=== PATIENT | male | born 1970 | race Caucasian/White ===

== ENCOUNTER 2021-07-22 16:01 | Observation (INO) | payer BC ==
[2021-07-22] MEDS ORDERED: ASPIRIN 81 MG PO STA (16:39)
--- NOTE | 2021-07-22 16:42 | ED ---
General Adult HPI - General Chief complaint: Chest Pain Stated complaint: Chest Pain Time Seen by Provider: 07/22/21 16:29 Source: patient, RN notes reviewed Mode of arrival: ambulatory Limitations: no limitations - History of Present Illness Initial comments: Patient is a pleasant 51-year-old male presenting to the emergency Department with complaints of chest discomfort. Onset of symptoms was several hours ago. Discomfort was as severe as 5 or 6/10. Discomfort is near resolved at this time. Patient states discomfort was right sternal, sharp. There was some radiation towards the neck. Patient follow-up and short of breath and anxious and was sweaty. No nausea. No history of similar symptoms previously. Patient does have history apparently use. Patient also has history of atrial fibrillation and is on flecainide as well as elequis. - Related Data Home Medications Medication Instructions Recorded Confirmed Acetaminophen [Tylenol 8 Hour] 650 mg PO Q4H PRN 07/22/21 07/22/21 Apixaban [Eliquis] 5 mg PO BID 07/22/21 07/22/21 Atorvastatin Calcium [Lipitor] 40 mg PO HS 07/22/21 07/22/21 Calc/Mag/Zinc/Aaliyah D 1 tab PO TID PRN 07/22/21 07/22/21 Chlorpheniramine Maleate 4 mg PO Q4H PRN 07/22/21 07/22/21 [Chlor-Trimeton] Flecainide Acetate 50 mg PO BID 07/22/21 07/22/21 Hyoscyamine Sulfate [Levsin] 0.125 mg PO QID PRN 07/22/21 07/22/21 Ibuprofen [Motrin Ib] 600 mg PO Q6H PRN 07/22/21 07/22/21 Loperamide HCl [Imodium A-D] 4 mg PO QID PRN 07/22/21 07/22/21 Metoprolol Succinate (ER) [Toprol 100 mg PO DAILY 07/22/21 07/22/21 Xl] Multivitamins, Thera [Multivitamin 1 tab PO DAILY 07/22/21 07/22/21 (formulary)] Ondansetron [Zofran] 4 mg PO Q6H PRN 07/22/21 07/22/21 Pantoprazole Sodium [Protonix] 40 mg PO DAILY 07/22/21 07/22/21 Thiamine HCl [Vitamin B-1] 100 mg PO DAILY 07/22/21 07/22/21 cloNIDine HCL [Catapres] 0.1 mg PO Q4H PRN 07/22/21 07/22/21 guaiFENesin SYRUP 100MG/5ML 200 mg PO Q4H PRN 07/22/21 07/22/21 [Robitussin] traZODone HCL [Desyrel] 50 - 150 mg PO HS PRN 07/22/21 07/22/21 Allergies Allergy/AdvReac Type Severity Reaction Status Date / Time No Known Allergies Allergy Verified 07/22/21 17:35 Review of Systems ROS Statement: Those systems with pertinent positive or pertinent negative responses have been documented in the HPI. ROS Other: All systems not noted in ROS Statement are negative. Constitutional: Denies: fever Eyes: Denies: eye pain ENT: Denies: ear pain Respiratory: Reports: as per HPI. Denies: cough Cardiovascular: Reports: as per HPI, chest pain Endocrine: Denies: fatigue Gastrointestinal: Denies: abdominal pain, nausea, vomiting Genitourinary: Denies: dysuria Musculoskeletal: Denies: back pain Skin: Denies: rash Neurological: Denies: headache Psychiatric: Reports: as per HPI, anxiety Past Medical History Past Medical History: Atrial Fibrillation, Hypertension History of Any Multi-Drug Resistant Organisms: None Reported Past Surgical History: No Surgical Hx Reported Past Psychological History: No Psychological Hx Reported Smoking Status: Current every day smoker Past Alcohol Use History: None Reported Past Drug Use History: Heroin General Exam Limitations: no limitations General appearance: alert, in no apparent distress Head exam: Present: normocephalic Eye exam: Present: normal appearance Neck exam: Present: normal inspection Respiratory exam: Present: normal lung sounds bilaterally. Absent: chest wall tenderness Cardiovascular Exam: Present: regular rate, normal rhythm, normal heart sounds Expanded Peripheral pulses: 2+: Radial (R), Radial (L), Posterior Tibialis (R), Posterior Tibialis (L) GI/Abdominal exam: Present: soft. Absent: tenderness Extremities exam: Present: normal inspection. Absent: pedal edema, calf tender ness Neurological exam: Present: alert Psychiatric exam: Present: normal affect, normal mood Skin exam: Present: normal color Course Vital Signs 07/22/21 07/22/21 16:11 17:46 Temperature 98 F Pulse Rate 73 60 Respiratory 16 16 Rate Blood Pressure 150/89 132/94 O2 Sat by Pulse 98 97 Oximetry EKG Findings - EKG Comments: EKG Findings:: Sinus rhythm with a rate of 62. GA 155. QRS 90. QT 404. QTC 49. Normal axis. Normal QRS. No acute ST change. Medical Decision Making - Medical Decision Making Patient evaluated. Patient updated on results and plan. Case discussed with , who will admit for hospital call. - Lab Data Result diagrams: 07/22/21 17:10 07/22/21 17:10 Lab Results 07/22/21 07/22/21 07/22/21 Range/Units 17:10 17:10 17:10 WBC 8.2 (3.8-10.6) k/uL RBC 4.37 (4.30-5.90) m/uL Hgb 14.0 (13.0-17.5) gm/dL Hct 40.1 (39.0-53.0) % MCV 91.6 (80.0-100.0) fL MCH 31.9 (25.0-35.0) pg MCHC 34.8 (31.0-37.0) g/dL RDW 13.9 (11.5-15.5) % Plt Count 335 (150-450) k/uL MPV 7.8 Neutrophils % 57 % Lymphocytes % 33 % Monocytes % 5 % Eosinophils % 2 % Basophils % 1 % Neutrophils # 4.7 (1.3-7.7) k/uL Lymphocytes # 2.7 (1.0-4.8) k/uL Monocytes # 0.4 (0-1.0) k/uL Eosinophils # 0.2 (0-0.7) k/uL Basophils # 0.0 (0-0.2) k/uL PT 10.7 (9.0-12.0) sec INR 1.0 (<1.2) APTT 27.7 (22.0-30.0) sec D-Dimer <0.17 (<0.60) mg/L FEU Sodium 141 (137-145) mmol/L Potassium 4.5 (3.5-5.1) mmol/L Chloride 105 (98-107) mmol/L Carbon Dioxide 25 (22-30) mmol/L Anion Gap 11 mmol/L BUN 13 (9-20) mg/dL Creatinine 0.82 (0.66-1.25) mg/dL Est GFR (CKD-EPI)AfAm >90 (>60 ml/min/1.73 sqM) Est GFR (CKD-EPI)NonAf >90 (>60 ml/min/1.73 sqM) Glucose 92 (74-99) mg/dL Calcium 9.3 (8.4-10.2) mg/dL Magnesium 2.2 (1.6-2.3) mg/dL Total Bilirubin 0.5 (0.2-1.3) mg/dL AST 23 (17-59) U/L ALT 26 (4-49) U/L Alkaline Phosphatase 66 (38-126) U/L Troponin I (0.000-0.034) ng/mL Total Protein 7.3 (6.3-8.2) g/dL Albumin 4.4 (3.5-5.0) g/dL 07/22/21 Range/Units 17:10 WBC (3.8-10.6) k/uL RBC (4.30-5.90) m/uL Hgb (13.0-17.5) gm/dL Hct (39.0-53.0) % MCV (80.0-100.0) fL MCH (25.0-35.0) pg MCHC (31.0-37.0) g/dL RDW (11.5-15.5) % Plt Count (150-450) k/uL MPV Neutrophils % % Lymphocytes % % Monocytes % % Eosinophils % % Basophils % % Neutrophils # (1.3-7.7) k/uL Lymphocytes # (1.0-4.8) k/uL Monocytes # (0-1.0) k/uL Eosinophils # (0-0.7) k/uL Basophils # (0-0.2) k/uL PT (9.0-12.0) sec INR (<1.2) APTT (22.0-30.0) sec D-Dimer (<0.60) mg/L FEU Sodium (137-145) mmol/L Potassium (3.5-5.1) mmol/L Chloride (98-107) mmol/L Carbon Dioxide (22-30) mmol/L Anion Gap mmol/L BUN (9-20) mg/dL Creatinine (0.66-1.25) mg/dL Est GFR (CKD-EPI)AfAm (>60 ml/min/1.73 sqM) Est GFR (CKD-EPI)NonAf (>60 ml/min/1.73 sqM) Glucose (74-99) mg/dL Calcium (8.4-10.2) mg/dL Magnesium (1.6-2.3) mg/dL Total Bilirubin (0.2-1.3) mg/dL AST (17-59) U/L ALT (4-49) U/L Alkaline Phosphatase (38-126) U/L Troponin I <0.012 (0.000-0.034) ng/mL Total Protein (6.3-8.2) g/dL Albumin (3.5-5.0) g/dL - Radiology Data Radiology results: image reviewed (Chest x-ray shows no acute process) Disposition Clinical Impression: Chest pain Disposition: ADMITTED IP TO THIS [facility] Is patient prescribed a controlled substance at d/c from ED?: No Referrals: None,Stated [Primary Care Provider] - 1-2 days Decision Time: 19:16
[2021-07-22 17:19] LABS: Basophils % (A) 1 %; Eosinophils # (A) 0.2 k/uL (0-0.7); Eosinophils % (A) 2 %; HCT 40.1 % (39.0-53.0); Lymphocytes # (A) 2.7 k/uL (1.0-4.8); Lymphocytes % (A) 33 %; MCH 31.9 pg (25.0-35.0); MCHC 34.8 g/dL (31.0-37.0); MCV 91.6 fL (80.0-100.0); Mean Platelet Volume 7.8; Monocytes # (A) 0.4 k/uL (0-1.0); Monocytes % (A) 5 %; Neutrophils # (A) 4.7 k/uL (1.3-7.7); Neutrophils % (A) 57 %; Platelet Count 335 k/uL (150-450); RBC 4.37 m/uL (4.30-5.90); RDW 13.9 % (11.5-15.5); WBC 8.2 k/uL (3.8-10.6)
[2021-07-22 17:29] LABS: ALT 26 U/L (4-49); AST 23 U/L (17-59); African American GFR (CKD) >90 (>60 ml/min/1.73 sqM); Albumin 4.4 g/dL (3.5-5.0); Alkaline Phosphatase 66 U/L (38-126); Anion Gap 11 mmol/L; Blood Urea Nitrogen 13 mg/dL (9-20); Calcium 9.3 mg/dL (8.4-10.2); Carbon Dioxide 25 mmol/L (22-30); Chloride 105 mmol/L (98-107); Glucose 92 mg/dL (74-99); Magnesium 2.2 mg/dL (1.6-2.3); Non-African American GFR(CKD) >90 (>60 ml/min/1.73 sqM); Potassium 4.5 mmol/L (3.5-5.1); Sodium 141 mmol/L (137-145); Total Bilirubin 0.5 mg/dL (0.2-1.3); Total Protein 7.3 g/dL (6.3-8.2)
[2021-07-22 17:36] LABS: Partial Thromboplastin Time 27.7 sec (22.0-30.0); Prothrombin Time 10.7 sec (9.0-12.0)
--- NOTE | 2021-07-22 18:20 | XR ---
EXAMINATION TYPE: XR chest 2V DATE OF EXAM: 07/22/2021 COMPARISON: NONE HISTORY: Chest pain TECHNIQUE: 2 views FINDINGS: Heart and mediastinum are normal. Lungs are clear. Diaphragm is normal. Bony thorax appears normal. IMPRESSION: Normal chest
[2021-07-22] MEDS ORDERED: NITROGLYCERIN SL TABS 0.4 MG TAB SUBLINGUAL PRN (19:16)
[2021-07-23] MEDS: NITROGLYCERIN OINT 1 INCH/GM PACKET TOPICAL SCH ×2 (00:04→05:50)
[2021-07-23] MEDS ORDERED: NALOXONE 0.4 MG/ML 1 ML VIAL IVP PRN (01:16)
--- NOTE | 2021-07-23 01:18 | P.HPIM ---
History of Present Illness H&P Date: 07/22/21 Patient is a 51-year-old male with a PMH of A. seun on Eliquis, heroin abuse, currently at [place] who presented to the emergency complaints of chest pain. The patient reports that his pain started at around 1 PM, was right- sided, sharp and aching in nature, 5 out of 10 at maximal intensity, constant, nonradiating, with no alleviating or exacerbating features. He does report some associated shortness of breath and diaphoresis but denied nausea, vomiting, diarrhea. Denies any history of such pain in the past. Denied history of coronary artery disease or MIs in the past. Reports compliance with his medications. In the emergency room, evaluation revealed a troponin of less than 0.012. EKG revealed sinus rhythm at [address]/T-wave changes are as reviewed by me. Chest x-ray was unremarkable. Review of systems: Pertinent positives and negatives as discussed in HPI, a complete review of systems was performed and all other systems are negative. Physical examination: General: non toxic, no distress, appears at stated age, normal weight Derm: no unusual rashes/lesions no unusual ecchymoses, warm, dry Head: atraumatic, normocephalic, symmetric Eyes: EOMI, no lid lag, anicteric sclera, pupils equal round reactive to light ENT: Nose and ears atraumatic, no thrush, no pharyngeal erythema Neck: No thyromegaly, no cervical lymphadenopathy, trachea midline, supple Mouth: no lip lesion, mucus membranes moist Cardiovascular: S1S2 reg, no murmur, positive posterior tibial pulse bilateral, no edema, capillary refill less than 2 seconds Lungs: CTA bilateral, no rhonchi, no rales , no accessory muscle use Abdominal: soft, nontender to palpation, no guarding, no appreciable organomegaly, normal bowel sounds Ext: no gross muscle atrophy, muscle strength 5 out of 5 in all 4 extremities grossly, no contractures, Neuro: CN II-XI grossly intact, light touch intact all 4 extremities, finger to nose within normal limits, Psych: Alert, oriented, appropriate affect Assessment/plan Chest pain with atypical features -Trend troponin -Cardiac monitoring -Cardiology consult -Continue with aspirin, statin Chronic conditions: A. fib, HTN -Continue with home meds DVT prophylaxis -Eliquis The patient is admitted with an anticipated less than 2 midnight stay for eval uation of chest pain CODE STATUS: Full Code Discussed with: Patient Anticipated discharge date: in am Anticipated discharge place: Home Past Medical History Past Medical History: Atrial Fibrillation, Hypertension History of Any Multi-Drug Resistant Organisms: None Reported Past Surgical History: No Surgical Hx Reported Past Psychological History: No Psychological Hx Reported Smoking Status: Current every day smoker Past Alcohol Use History: None Reported Past Drug Use History: Heroin - Past Family History Father Family Medical History: Unable to Obtain Mother Family Medical History: Chest Pain / Angina Medications and Allergies Home Medications Medication Instructions Recorded Confirmed Type Acetaminophen [Tylenol 8 Hour] 650 mg PO Q4H PRN 07/22/21 07/22/21 History Apixaban [Eliquis] 5 mg PO BID 07/22/21 07/22/21 History Atorvastatin Calcium [Lipitor] 40 mg PO HS 07/22/21 07/22/21 History Calc/Mag/Zinc/Aaliyah D 1 tab PO TID PRN 07/22/21 07/22/21 History Chlorpheniramine Maleate 4 mg PO Q4H PRN 07/22/21 07/22/21 History [Chlor-Trimeton] Flecainide Acetate 50 mg PO BID 07/22/21 07/22/21 History Hyoscyamine Sulfate [Levsin] 0.125 mg PO QID PRN 07/22/21 07/22/21 History Ibuprofen [Motrin Ib] 600 mg PO Q6H PRN 07/22/21 07/22/21 History Loperamide HCl [Imodium A-D] 4 mg PO QID PRN 07/22/21 07/22/21 History Metoprolol Succinate (ER) [Toprol 100 mg PO DAILY 07/22/21 07/22/21 History Xl] Multivitamins, Thera [Multivitamin 1 tab PO DAILY 07/22/21 07/22/21 History (formulary)] Ondansetron [Zofran] 4 mg PO Q6H PRN 07/22/21 07/22/21 History Pantoprazole Sodium [Protonix] 40 mg PO DAILY 07/22/21 07/22/21 History Thiamine HCl [Vitamin B-1] 100 mg PO DAILY 07/22/21 07/22/21 History cloNIDine HCL [Catapres] 0.1 mg PO Q4H PRN 07/22/21 07/22/21 History guaiFENesin SYRUP 100MG/5ML 200 mg PO Q4H PRN 07/22/21 07/22/21 History [Robitussin] traZODone HCL [Desyrel] 50 - 150 mg PO HS PRN 07/22/21 07/22/21 History Allergies Allergy/AdvReac Type Severity Reaction Status Date / Time No Known Allergies Allergy Verified 07/22/21 17:35 Physical Exam Vitals: Vital Signs Temp Pulse Resp BP Pulse Ox 07/22/21 17:46 60 16 132/94 97 07/22/21 16:11 98 F 73 16 150/89 98 Intake and Output 07/22/21 07/22/21 07/22/21 06:59 14:59 22:59 Other: Weight 74.843 kg Results CBC & Chem 7: 07/22/21 17:10 07/22/21 17:10
[2021-07-23] MEDS ORDERED: ATORVASTATIN 80 MG TAB PO ONE (01:30)
[2021-07-23] MEDS ORDERED: METOPROLOL TARTRATE 25 MG TAB PO ONE (01:30)
[2021-07-23] MEDS: NICOTINE 14MG/24HR PATCH TRANSDERM SCH ×2 (02:40→09:14)
[2021-07-23] MEDS ORDERED: HEPARIN SODIUM,PORCINE/PF 5,000 UNIT/0.5 ML SYRINGE SQ SCH (08:00)
[2021-07-23] MEDS ORDERED: APIXABAN 5 MG TAB PO SCH (09:00)
[2021-07-23] MEDS ORDERED: PANTOPRAZOLE 40 MG TABLET PO SCH (09:00)
[2021-07-23] MEDS ORDERED: THIAMINE 100 MG TAB PO SCH (09:00)
[2021-07-23] MEDS ORDERED: FLECAINIDE 50 MG TAB PO SCH (09:00)
[2021-07-23] MEDS ORDERED: ASPIRIN 325 MG TAB PO SCH (09:00)
[2021-07-23] MEDS ORDERED: METOPROLOL SUCCINATE (ER) 100 MG TAB.ER.24H PO SCH (09:00)
[2021-07-23 09:16] LABS: Chol/HDL Ratio 3.63 Ratio; LDL Cholesterol,Calculated 65.5 mg/dL (0.0-131.0); VLDL Calculation 18.46 mg/dL (5.00-40.00)
--- NOTE | 2021-07-23 10:17 | P.CRDCN ---
History of Present Illness Consult date: 07/23/21 History of present illness: HISTORY OF PRESENT ILLNESS: This is a 51-year-old male with a past medical history significant for atrial fibrillation first noticed in 2011 with previous cardioversion and ablation in 2018, hypertension, hyperlipidemia, nicotine dependence, and heroin abuse. 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 We have been asked to see the patient in consultation for chest pain. Patient examined at the bedside. Patient states he is currently at [place]. He began having right sided chest pain yesterday morning. He states the pain was constant. He reports feeling sweaty at the time. He denied any radiation of the pain. He states after receiving his morning medications yesterday his pain began to resolve. He denies any chest pain this morning. The patient reports she is a current cigarette smo ker and smokes 1 pack per day. He denies any alcohol use. He reports a history apparently when use and states he last used heroin about a week ago. He reports having a stress test in 1999 and 03/2013 when he was first diagnosed with atrial fibrillation. He states his stress test was negative to his knowledge. He denies ever having a cardiac catheterization. * EKG reveals sinus mechanism with no signs of acute ischemia * Chest xray negative for acute process * Laboratory data: WBC 8.2. Hemoglobin 14.0. Platelet count 335. D-dimer 0.17. Sodium 141. Potassium 4.5. BUN 13. Creatinine 0.82. Magnesium 2.2. * Current home cardiac medications include Eliquis 5 mg twice a day, Lipitor 40 mg at night, flecainide 50 mg twice a day, metoprolol succinate 100 mg daily, clonidine 0.1 mg every 4 hours as needed REVIEW OF SYSTEMS: At the time of my exam: CONSTITUTIONAL: Denies fever or chills. HEENT: Denies blurred vision, vision changes, or eye pain. Denies hemoptysis CARDIOVASCULAR: Denies chest pain. Denies orthopnea. Denies PND. Denies palpitations RESPIRATORY: Denies shortness of breath. GASTROINTESTINAL: Denies abdominal pain. Denies nausea or vomiting. HEMATOLOGIC: Denies bleeding disorders. GENITOURINARY: Denies any blood in urine. SKIN: Denies pruitis. Denies rash. PHYSICAL EXAM: VITAL SIGNS: Reviewed. GENERAL: Well-developed in no acute distress. HEENT: Head is normocephalic. Pupils are equal, round. Sclerae anicteric. Mucous membranes of the mouth are moist. Neck supple. No JVD or thyromegaly LUNGS: Respirations even and unlabored. Lungs essentially clear to auscultation bilaterally. HEART: Regular rate and rhythm. S1 and S2 heard. ABDOMEN: Soft. Nondistended. Nontender. EXTREMITIES: Normal range of motion. No clubbing or cyanosis. Peripheral pulses intact. No lower extremity edema NEUROLOGIC: Awake and alert. Oriented x 3. ASSESSMENT: Chest pain Paroxysmal atrial fibrillation History of cardioversion and ablation Hypertension Hyperlipidemia Nicotine dependence Heroin abuse PLAN: An acute coronary event has been ruled out Continue home cardiac medications Patient to undergo stress echo today to assess for ischemia Further recommendations pending patient course Nurse practitioner note has been reviewed by physician. Signing provider agrees with the documented findings, assessment, and plan of care. Past Medical History Past Medical History: Atrial Fibrillation, Hypertension History of Any Multi-Drug Resistant Organisms: None Reported Past Surgical History: No Surgical Hx Reported Additional Past Surgical History / Comment(s): cardiac ablation 2017. Past Anesthesia/Blood Transfusion Reactions: No Reported Reaction Past Psychological History: No Psychological Hx Reported Smoking Status: Current every day smoker Past Alcohol Use History: None Reported Past Drug Use History: Heroin - Past Family History Father Family Medical History: Unable to Obtain Mother Family Medical History: Chest Pain / Angina Medications and Allergies Home Medications Medication Instructions Recorded Confirmed Type Acetaminophen [Tylenol 8 Hour] 650 mg PO Q4H PRN 07/22/21 07/22/21 History Apixaban [Eliquis] 5 mg PO BID 07/22/21 07/22/21 History Atorvastatin Calcium [Lipitor] 40 mg PO HS 07/22/21 07/22/21 History Calc/Mag/Zinc/Aaliyah D 1 tab PO TID PRN 07/22/21 07/22/21 History Chlorpheniramine Maleate 4 mg PO Q4H PRN 07/22/21 07/22/21 History [Chlor-Trimeton] Flecainide Acetate 50 mg PO BID 07/22/21 07/22/21 History Hyoscyamine Sulfate [Levsin] 0.125 mg PO QID PRN 07/22/21 07/22/21 History Ibuprofen [Motrin Ib] 600 mg PO Q6H PRN 07/22/21 07/22/21 History Loperamide HCl [Imodium A-D] 4 mg PO QID PRN 07/22/21 07/22/21 History Metoprolol Succinate (ER) [Toprol 100 mg PO DAILY 07/22/21 07/22/21 History Xl] Multivitamins, Thera [Multivitamin 1 tab PO DAILY 07/22/21 07/22/21 History (formulary)] Ondansetron [Zofran] 4 mg PO Q6H PRN 07/22/21 07/22/21 History Pantoprazole Sodium [Protonix] 40 mg PO DAILY 07/22/21 07/22/21 History Thiamine HCl [Vitamin B-1] 100 mg PO DAILY 07/22/21 07/22/21 History cloNIDine HCL [Catapres] 0.1 mg PO Q4H PRN 07/22/21 07/22/21 History guaiFENesin SYRUP 100MG/5ML 200 mg PO Q4H PRN 07/22/21 07/22/21 History [Robitussin] traZODone HCL [Desyrel] 50 - 150 mg PO HS PRN 07/22/21 07/22/21 History Allergies Allergy/AdvReac Type Severity Reaction Status Date / Time No Known Allergies Allergy Verified 07/22/21 17:35 Physical Exam Vitals: Vital Signs Temp Pulse Pulse Resp BP BP Pulse Ox 07/23/21 06:25 97.6 F 55 L 18 155/91 98 07/23/21 02:39 97.4 F L 60 16 145/88 99 07/22/21 20:35 97.8 F 61 16 158/93 99 07/22/21 17:46 60 16 132/94 97 07/22/21 16:11 98 F 73 16 150/89 98 Intake and Output 07/22/21 07/23/21 07/23/21 22:59 06:59 14:59 Other: # Voids 2 2 Weight 74.843 kg Results 07/22/21 17:10 07/22/21 17:10 Cardiac Enzymes 07/22/21 07/22/21 07/22/21 Range/Units 17:10 17:10 20:07 AST 23 (17-59) U/L Troponin I <0.012 <0.012 (0.000-0.034) ng/mL 07/22/21 07/23/21 07/23/21 Range/Units 23:04 02:46 05:51 AST (17-59) U/L Troponin I <0.012 <0.012 <0.012 (0.000-0.034) ng/mL Coagulation 07/22/21 Range/Units 17:10 PT 10.7 (9.0-12.0) sec APTT 27.7 (22.0-30.0) sec CBC 07/22/21 Range/Units 17:10 WBC 8.2 (3.8-10.6) k/uL RBC 4.37 (4.30-5.90) m/uL Hgb 14.0 (13.0-17.5) gm/dL Hct 40.1 (39.0-53.0) % Plt Count 335 (150-450) k/uL Comprehensive Metabolic Panel 07/22/21 Range/Units 17:10 Sodium 141 (137-145) mmol/L Potassium 4.5 (3.5-5.1) mmol/L Chloride 105 (98-107) mmol/L Carbon Dioxide 25 (22-30) mmol/L BUN 13 (9-20) mg/dL Creatinine 0.82 (0.66-1.25) mg/dL Glucose 92 (74-99) mg/dL Calcium 9.3 (8.4-10.2) mg/dL AST 23 (17-59) U/L ALT 26 (4-49) U/L Alkaline Phosphatase 66 (38-126) U/L Total Protein 7.3 (6.3-8.2) g/dL Albumin 4.4 (3.5-5.0) g/dL Current Medications Generic Name Dose Route Start Last Admin Trade Name Freq PRN Reason Stop Dose Admin Apixaban 5 mg 07/23/21 09:00 Apixaban 5 Mg Tab PO BID [facility] Protocol Aspirin 325 mg 07/23/21 09:00 Aspirin 325 Mg Tab PO DAILY [facility] Atorvastatin Calcium 40 mg 07/23/21 21:00 Atorvastatin 40 Mg Tab PO HS [facility] Flecainide Acetate 50 mg 07/23/21 09:00 Flecainide 50 Mg Tab PO BID [facility] Metoprolol Succinate 100 mg 07/23/21 09:00 Metoprolol Succinate (Er) 100 Mg Tab.Er.24h PO DAILY [facility] Naloxone HCl 0.2 mg 07/23/21 01:16 Naloxone 0.4 Mg/Ml 1 Ml Vial IVP Q2M PRN Opioid Reversal Nicotine 1 patch 07/23/21 02:04 07/23/21 02:40 Nicotine 14mg/24hr Patch TRANSDERM 1 patch DAILY [facility] Administration Nitroglycerin 0.4 mg 07/22/21 19:16 Nitroglycerin Sl Tabs 0.4 Mg Tab SUBLINGUAL Q5M PRN Chest Pain Nitroglycerin 1 inch 07/23/21 00:00 07/23/21 05:50 Nitroglycerin Oint 1 Inch/Gm Packet TOPICAL Not Given Q6HR [facility] Pantoprazole Sodium 40 mg 07/23/21 09:00 Pantoprazole 40 Mg Tablet PO DAILY [facility] Thiamine HCl 100 mg 07/23/21 09:00 Thiamine 100 Mg Tab PO DAILY [facility] Intake and Output 07/22/21 07/23/21 07/23/21 22:59 06:59 14:59 Other: # Voids 2 2 Weight 74.843 kg 07/22/21 17:10 07/22/21 17:10
--- NOTE | 2021-07-23 13:27 | P.STRESS ---
- Stress Test Note Stress Test Results/Findings: Exam Performed: stress echo exercise Exam Date: 07/23/21 Reason for Exam: Chest Pain Height: 5 ft 11 in Weight: 74.843 kg Protocol: Manuel Stage: IV Duration of Exercise: 12:50 MIN Resting Heart Rate: 65 Resting Blood Pressure: 115/63 Maximum Achieved Heart Rate: 148 Maximum Achieved Blood Pressure: 180/97 85% PMHR: 144 100% PMHR: 169 METS: 13.1 Technologist Comment: Stress Test Results/Findings: Patient underwent exercise stress echo with a Manuel protocol treadmill stress test. Patient exercised into Stage 4 for a total of 12 minutes and 50 seconds reaching a total of 13.1 METS. Patient's maximum heart rate was 148 which represented 88% age-predicted maximum heart rate. Stress EKG portion: At baseline patient's EKG showed normal sinus rhythm, normal axis, no significant ST or T-wave abnormalities. At peak exercise, EKG showed no significant change from baseline. Stress echo portion: 2-D echocardiogram was performed in the parasternal long, personal short, apical 2 and apical four-chamber views at rest, peak exercise and in recovery. At baseline, echocardiogram showed left ventricular ejection fraction 55% without wall motion abnormalities. With peak exercise, echocardiogram shows improvement in left ventricular ejection fraction, increase contractility, decrease in left ventricular end systolic dimension without wall motion abnormalities consistent with a normal response to exercise. Conclusions: 1. Normal EKG and echo response to exercise without evidence of inducible ischemia. 2. Excellent exercise capacity. 3. Normal EF 55%
--- NOTE | 2021-07-23 14:42 | P.DS ---
Providers Date of admission: 07/22/21 19:21 Expected date of discharge: 07/23/21 Attending physician: Balbina Callahan MD Primary care physician: Stated None Hospital Course: Discharge Diagnosis: Atypical chest pain, acute coronary event ruled out Paroxysmal Atrial fibrillation continue anticoagulation with Eliquis Hypertension, monitor vital signs and continue daily medication regimen with metoprolol Hyperlipidemia, continue daily medication regimen with atorvastatin Heroin abuse, patient returning to [facility]. Hospital Course: Patient is a 51-year-old male with a PMH of A. fib on Eliquis, hyperlipidemia, hypertension, heroin abuse, currently at [facility] who presented to the emergency complaints of chest pain. The patient reports that his pain started at around 1 PM, was right-sided, sharp and aching in nature, 5 out of 10 at maximal intensity, constant, nonradiating, with no alleviating or exacerbating features. He does report some associated shortness of breath and diaphoresis but denied nausea, vomiting, diarrhea. Denies any history of such pain in the past. Denied history of coronary artery disease or MIs in the past. Reports compliance with his medications. In the emergency room, evaluation revealed a troponin of less than 0.012. D-dimer negative at less than 0.017. EKG reve aled sinus rhythm at [address]/T-wave changes are as reviewed by me. Chest x-ray was unremarkable. Patient was admitted under our services with consultation to cardiology. Troponins trended 4 all negative at less than 0.012. Lipid profile unremarkable with the exception of low HDL of 32.00. Echocardiogram completed revealing EF of 60-65% with no significant valvular abnormalities. Stress test completed revealing excellent exercise capacity with normal EKG and echo response to exercise without any evidence of inducible ischemia. Cardiology clearing patient from cardiac standpoint recommending outpatient follow-up with their office. Patient is medically stable at this time. Patient being discharged back to inpatient [facility] at [facility] per his request. Patient medically stable at this time and RN notified [facility] of patient's medical clearance and discharge. Patient seen and examined at bedside. Vital signs reviewed and stable. General: Nontoxic, no distress and appears stated age. Thin build. Derm: Skin warm and dry, normal coloration for ethnicity. Head: Atraumatic, normocephalic and symmetric. Eyes: EOMs intact, no lid lag, and anicteric sclera Mouth: no lip lesions, mucus membranes moist Cardiovascular: regular rate and rhythm with normal S1S2, no murmur, positive posterior tibial pulses bilaterally, and cap refill < 2 seconds. Lungs: Respirations even, regular, and unlabored on room air. Lungs CTA bilaterally, no rhonchi, no rales, no wheezing, and no accessory muscle usage. Abdominal: soft, nontender to palpation, no guarding, no appreciable organomegaly Ext: ROM intact. No gross muscle atrophy, no edema, no contractures Neuro: Speech clear, face symmetrical and CN II-XII grossly intact with no noted focal neuro deficits Psych: Alert and oriented to person, place, time, and situation. Appropriate and pleasant affect. A total of 35 minutes of time were spent preparing this complex discharge summary. Howard Holguin NP rendered care for this patient independently, reviewed the findings and plan as documented in the note above. I did not physically speak with or examine the patient on this date. Patient Condition at Discharge: Stable Plan - Discharge Summary New Discharge Prescriptions: Continue Loperamide HCl [Imodium A-D] 4 mg PO QID PRN PRN Reason: Diarrhea Calc/Mag/Zinc/Aaliyah D 1 tab PO TID PRN PRN Reason: CRAMPING Metoprolol Succinate (ER) [Toprol XL] 100 mg PO DAILY Flecainide Acetate 50 mg PO BID Ibuprofen [Motrin Ib] 600 mg PO Q6H PRN #0 PRN Reason: Pain traZODone HCL [Desyrel] 50 - 150 mg PO HS PRN PRN Reason: Insomnia Ondansetron [Zofran] 4 mg PO Q6H PRN PRN Reason: Nausea And Vomiting Acetaminophen [Tylenol 8 Hour] 650 mg PO Q4H PRN PRN Reason: Fever And/ Or Pain Thiamine HCl [Vitamin B-1] 100 mg PO DAILY Multivitamins, Thera [Multivitamin (formulary)] 1 tab PO DAILY Hyoscyamine Sulfate [Levsin] 0.125 mg PO QID PRN PRN Reason: IBS guaiFENesin SYRUP 100MG/5ML [Robitussin] 200 mg PO Q4H PRN PRN Reason: Cough Chlorpheniramine Maleate [Chlor-Trimeton] 4 mg PO Q4H PRN PRN Reason: Allergy Symptoms cloNIDine HCL [Catapres] 0.1 mg PO Q4H PRN PRN Reason: Anxiety Pantoprazole Sodium [Protonix] 40 mg PO DAILY Atorvastatin Calcium [Lipitor] 40 mg PO HS Apixaban [Eliquis] 5 mg PO BID Discharge Medication List Acetaminophen [Tylenol 8 Hour] 650 mg PO Q4H PRN 07/22/21 [History] Apixaban [Eliquis] 5 mg PO BID 07/22/21 [History] Atorvastatin Calcium [Lipitor] 40 mg PO HS 07/22/21 [History] Calc/Mag/Zinc/Aaliyah D 1 tab PO TID PRN 07/22/21 [History] Chlorpheniramine Maleate [Chlor-Trimeton] 4 mg PO Q4H PRN 07/22/21 [History] Flecainide Acetate 50 mg PO BID 07/22/21 [History] Hyoscyamine Sulfate [Levsin] 0.125 mg PO QID PRN 07/22/21 [History] Loperamide HCl [Imodium A-D] 4 mg PO QID PRN 07/22/21 [History] Metoprolol Succinate (ER) [Toprol XL] 100 mg PO DAILY 07/22/21 [History] Multivitamins, Thera [Multivitamin (formulary)] 1 tab PO DAILY 07/22/21 [History] Ondansetron [Zofran] 4 mg PO Q6H PRN 07/22/21 [History] Pantoprazole Sodium [Protonix] 40 mg PO DAILY 07/22/21 [History] Thiamine HCl [Vitamin B-1] 100 mg PO DAILY 07/22/21 [History] cloNIDine HCL [Catapres] 0.1 mg PO Q4H PRN 07/22/21 [History] guaiFENesin SYRUP 100MG/5ML [Robitussin] 200 mg PO Q4H PRN 07/22/21 [History] traZODone HCL [Desyrel] 50 - 150 mg PO HS PRN 07/22/21 [History] Ibuprofen [Motrin Ib] 600 mg PO Q6H PRN #0 07/23/21 [Rx] Follow up Appointment(s)/Referral(s): Edmar Mckeon DO [STAFF PHYSICIAN] - 1 Week Stanford Bradford MD [REFERRING] - 1 Week Activity/Diet/Wound Care/Special Instructions: Activity: As tolerated. Take breaks as needed. Diet: Heart healthy and carb consistent diet. Avoid salts, or foods with hidden salts such as canned or boxed foods and frozen dinners. Extra salt makes your heart work harder and traps the fluid in your body for longer. Special Instructions: Take all of your medications as directed and remember to keep all of your doct or's appointments and follow-up as needed. Thank you for allowing us to participate in your care, it was truly a pleasure having you for our patient!!! Discharge Disposition: HOME SELF-CARE
[2021-07-23 15:26] VITALS: PULSE 75
[2021-07-23 15:31] VITALS: BP 135/87; RESP 15; TEMP 98
--- NOTE | 2021-07-23 18:00 | ECHOF ---
Referral Reason:LV function MEASUREMENTS -------- HEIGHT: 180.3 cm WEIGHT: 74.8 kg BP: 155/91 RVIDd: 3.2 cm (< 3.3) IVSd: 1.0 cm (0.6 - 1.1) LVIDd: 5.0 cm (3.9 - 5.3) LVPWd: 1.1 cm (0.6 - 1.1) IVSs: 1.6 cm LVIDs: 3.0 cm LVPWs: 1.8 cm LA Diam: 3.3 cm (2.7 - 3.8) LAESV Index (A-L): 21.45 ml/m Ao Diam: 2.9 cm (2.0 - 3.7) AV Cusp: 2.0 cm (1.5 - 2.6) MV EXCURSION: 14.273 mm (> 18.000) MV EF SLOPE: 118 mm/s (70 - 150) EPSS: 0.5 cm MV E Silver: 0.79 m/s MV DecT: 169 ms MV A Silver: 0.67 m/s MV E/A Ratio: 1.18 RAP: 5.00 mmHg RVSP: 23.65 mmHg FINDINGS -------- Sinus rhythm. This was a technically good study. The left ventricular size is normal. Left ventricular wall thickness is normal. Overall left vent ricular systolic function is normal with, an EF between 60 - 65 %. The right ventricle is normal in size. Normal LA size by volume 22+/-6 ml/m2. The right atrium is normal in size. Interatrial and interventricular septum intact. The aortic valve is trileaflet, and appears structurally normal. No aortic stenosis or regurgitation. Mild mitral regurgitation is present. Mild tricuspid regurgitation present. Right ventricular systolic pressure is normal at < 35 mmHg. Trace/mild (physiologic) pulmonic regurgitation. The aortic root size is normal. Normal inferior vena cava with normal inspiratory collapse consistent with estimated right atrial pre ssure of 5 mmHg. There is no pericardial effusion. CONCLUSIONS -------- 1. The left ventricular size is normal. 2. Left ventricular wall thickness is normal. 3. Overall left ventricular systolic function is normal with, an EF between 60 - 65 %. 4. Mild mitral regurgitation is present. 5. Mild tricuspid regurgitation present. 6. Trace/mild (physiologic) pulmonic regurgitation. 7. There is no pericardial effusion. PHOTOGRAPHER HELPER: Carrie Amaya RDCS
[2021-07-23] MEDS ORDERED: ATORVASTATIN 40 MG TAB PO SCH (21:00)
== END 2021-07-23 15:53 | disposition home or self-care (01) ==
LOC: EC 16:01 → 6NMEDSUR 19:21
PROVIDERS: ADMIT Internal Medicine; ATTEND Internal Medicine
DX: R07.89 Other chest pain (principal); I48.0 Paroxysmal atrial fibrillation; I10 Essential (primary) hypertension; I08.1 Rheumatic disorders of both mitral and tricuspid valves; F11.10 Opioid abuse, uncomplicated; E78.5 Hyperlipidemia, unspecified; R06.02 Shortness of breath; R61 Generalized hyperhidrosis; F41.9 Anxiety disorder, unspecified; F17.210 Nicotine dependence, cigarettes, uncomplicated; Z79.01 Long term (current) use of anticoagulants; Z79.899 Other long term (current) drug therapy; Z98.890 Other specified postprocedural states
CPT/HCPCS: 99285; 36415; 93005; 93306; 93351; 85379; 80061; 80053; 83735; 84484 ×2; 85025; 85610; 85730; 71046; G0378 ×2; S4990